=== PATIENT | male | born 1995 | race Caucasian/White ===

== ENCOUNTER 2025-07-01 08:30 | Outpatient (CLI) | payer BC, SELFPAY ==
[2025-07-01 09:04] LABS: Hematocrit 45.5 % (42.0-52.0); Hemoglobin 15.5 g/dL (14.0-18.0); Immature Granulocyte Percent A 0.7 % (0-0.5); Lymphocytes Absolute Auto 2.23 K/mm3 (0.9-3.2); Mean Corpuscular HGB Conc 34.1 g/dl (32-36); Mean Corpuscular Hemoglobin 29.8 pg (26-34); Mean Corpuscular Volume 87.5 fl (80-100); Nucleated Red Blood Cells Absolute Auto 0.000 K/mm3 (0.0-0.012); Nucleated Red Blood Cells Perc 0.0 % (0.0-0.2); Platelet Count Result 179 k/mm3 (150-375); Red Blood Count 5.20 M/mm3 (4.6-6.20); White Blood Count 5.8 K/mm3 (4.5-10.0)
[2025-07-01 09:38] LABS: Anion Gap 7 mmol/L (4-12); Blood Urea Nitrogen 10 mg/dL (9-20); Calcium 9.2 mg/dL (8.4-10.2); Carbon Dioxide 30 mmol/L (22-30); Chloride 101 mmol/L (98-107); Cholesterol 179 mg/dL (0-200); Estimated Glomerular Filt Rate > 60; Glucose 93 mg/dL (65-110); HDL Direct 42 mg/dL; Potassium 4.7 mmol/L (3.4-5.0); Sodium 138 mmol/L (137-145); Triglycerides 86 mg/dL (<150)
[2025-07-01 09:49] LABS: Free T4 Free Thyroxine 0.89 ng/dL (0.78-2.19)
[2025-07-01 10:14] LABS: Thyroid Stimulating Hormone 1.020 uIU/mL (0.465-4.680)
== END 2025-07-01 08:31 | disposition home or self-care (01) ==
LOC: ANHLAB 08:33
PROVIDERS: PCP Family Medicine; Visit Provider Physician Assistant Medical
DX: Z13.1 Encounter for screening for diabetes mellitus (principal); R53.82 Chronic fatigue, unspecified; R19.5 Other fecal abnormalities; E55.9 Vitamin D deficiency, unspecified; E78.5 Hyperlipidemia, unspecified
CPT/HCPCS: 36415; 80048; 80061; 82306; 84439; 84443; 85025

== ENCOUNTER 2025-07-03 08:13 | Outpatient (CLI) | payer BC, SELFPAY ==
[2025-07-04 08:08] LABS: Cytomegalovirus (CMV) Ab, IgG >10.00 U/mL (0.00-0.59); Cytomegalovirus (CMV) Ab, IgM <30.0 AU/mL (0.0-29.9)
[2025-07-06 15:08] LABS: EBV Nuclear Antigen Ab, IgG 47.6 U/mL (0.0-17.9)
== END 2025-07-03 08:14 | disposition home or self-care (01) ==
LOC: ANHLAB 08:13
PROVIDERS: PCP Family Medicine; Visit Provider Nurse Practitioner Family
DX: R79.89 Other specified abnormal findings of blood chemistry (principal)
CPT/HCPCS: 86644; 86645; 86664; 86665